=== PATIENT | male | born 1945 | race Caucasian/White ===

== ENCOUNTER 2019-06-01 13:38 | Outpatient (CLI) | payer MEDICARE, OTHER ==
[2019-06-01] MEDS ORDERED: OMEP20TA62 PO (14:24)
[2019-06-01] MEDS ORDERED: LISI-167 PO (14:24)
[2019-06-01] MEDS ORDERED: TAMS-11 PO (14:24)
[2019-06-01] MEDS ORDERED: ATOR10TA PO (14:24)
[2019-06-01] MEDS ORDERED: IBUP200C8 PO (14:24)
[2019-06-01] MEDS ORDERED: ZOLP5TAB6 PO (14:24)
[2019-06-01] MEDS ORDERED: ACET-1600 PO (14:24)
[2019-06-01 14:57] LABS: BASOPHILS # (AUTO) 0.03 x10^3/uL (0-0.1); BASOPHILS % (AUTO) 0 % (0-1); EOSINOPHILS # (AUTO) 0.25 x10^3/uL (0-0.4); EOSINOPHILS % (AUTO) 3 % (1-7); LYMPHOCYTES # (AUTO) 1.54 x10^3/uL (1-3.4); LYMPHOCYTES % (AUTO) 19 % (22-44); MD NO; MEAN CORPUSCULAR HEMOGLOBIN 32.7 pg (27.5-34.5); MEAN CORPUSCULAR HGB CONC 33.3 g/dL (33.2-36.2); MEAN CORPUSCULAR VOLUME 98.3 fL (81-97); MEAN PLATELET VOLUME 8.1 fL (7.4-10.4); MONOCYTES # (AUTO) 0.57 x10^3/uL (0.2-0.8); MONOCYTES % (AUTO) 7 % (2-9); NEUTROPHILS # (AUTO) 5.58 x10^3/uL (1.8-6.8); NEUTROPHILS % (AUTO) 70 % (42-75); PLATELET COUNT 248 x10^3/uL (130-400); RED BLOOD COUNT 3.96 x10^6/uL (4.38-5.82); RED CELL DISTRIBUTION WIDTH 13.6 % (9.4-14.8)
[2019-06-01 15:04] LABS: ALANINE AMINOTRANSFERASE 23 U/L (12-78); ALBUMIN 3.7 g/dL (3.4-5.0); ANION GAP 6 mmol/L (5-15); CALCIUM 9.1 mg/dL (8.5-10.1); CHLORIDE 112 mmol/L (98-107); CREATININE 1.45 mg/dL (0.7-1.3)
[2019-06-01 15:06] LABS: ALKALINE PHOSPHATASE 67 U/L (45-117); BILIRUBIN,TOTAL 0.5 mg/dL (0.2-1.0); TOTAL PROTEIN 7.1 g/dL (6.4-8.2)
[2019-06-01 15:08] LABS: INTERNATIONAL NORMALIZED RATIO 1.02 (0.93-1.1); PROTHROMBIN TIME 10.7 Seconds (9.6-11.5)
[2019-06-06] MEDS ORDERED: HYDROmorphone 1 MG/ML, 1ML INJ ONE (13:44)
[2019-06-06] MEDS ORDERED: FENTANYL PF 100 MCG/2ML ONE (14:03)
[2019-06-07] MEDS ORDERED: OXYC-302 PO (09:29)
== END 2019-06-01 23:59 | disposition home or self-care (01) ==
LOC: STAR 13:38
PROVIDERS: ATTEND Orthopaedic Surgery
DX: Z01.818 Encounter for other preprocedural examination (principal); M16.11 Unilateral primary osteoarthritis, right hip; Z98.890 Other specified postprocedural states
CPT/HCPCS: 36415; 80053; 83036; 85025; 85610; 85730; 87081; 93005